=== PATIENT | male | born 1945 | race Caucasian/White ===

== ENCOUNTER 2020-10-11 05:47 | Outpatient (RCR) | payer MEDICARE, OTHER ==
[~2020-10-11] VITALS: Ht 190.5 cm; Wt 86.4 kg
[2020-10-11] MEDS ORDERED: HYDR25TA4 PO (13:07)
[2020-10-11] MEDS ORDERED: PRAV20TA3 PO (13:07)
[2020-10-11] MEDS ORDERED: TMSL.4C PO (13:07)
[2020-10-11] MEDS ORDERED: STL80T PO (13:07)
[2020-10-11] MEDS ORDERED: BETA1TAB15 PO (13:07)
[2020-10-11] MEDS ORDERED: METF-399 PO (13:07)
[2020-10-11] MEDS ORDERED: TIMO5DRO31 OU (13:07)
[2020-10-11] MEDS ORDERED: BENA20TA7 PO (13:07)
[2020-10-11] MEDS ORDERED: SAW450CA7 PO (13:07)
[2020-10-11] MEDS ORDERED: CINN500C2 PO (13:07)
[2020-10-11] MEDS ORDERED: ASPI-999 PO (13:07)
[2020-10-11] MEDS ORDERED: AMLO-250 PO (13:07)
== END 2020-10-11 13:10 | disposition home or self-care (01) ==
LOC: PREOP 05:47 → EDSTATUS 12:30 → PREOP 13:10
PROVIDERS: ATTEND Radiology Radiation Oncology
DX: Z01.818 Encounter for other preprocedural examination (principal)

== ENCOUNTER → 2020-10-16 | Outpatient (CLI) | payer MEDICARE, OTHER ==
[~2020-10-16] MED LIST: AMLO-250 PO; ASPI-999 PO; BENA20TA7 PO; BETA1TAB15 PO; CINN500C2 PO; HYDR25TA4 PO; METF-399 PO; PRAV20TA3 PO; SAW450CA7 PO; STL80T PO; TIMO5DRO31 OU; TMSL.4C PO
== END ==
LOC: LAB FS 10:10
PROVIDERS: ATTEND Radiology Radiation Oncology
DX: Z01.812 Encounter for preprocedural laboratory examination (principal); C61 Malignant neoplasm of prostate; Z20.828 Contact with and (suspected) exposure to other viral communicable diseases
CPT/HCPCS: 87635

== ENCOUNTER 2020-10-18 10:07 | Day surgery (SDC) | payer MEDICARE, OTHER ==
[~2020-10-18] VITALS: Ht 190.5 cm; Wt 86.4 kg
[2020-10-18] VITALS (9 sets, daily range): BP systolic 84–149; BP diastolic 53–88
--- NOTE | 2020-10-18 10:21 | Progress Note-Pre Operative ---
Pre-Operative Progress Note H&P Reviewed The H&P was reviewed, patient examined and no changes noted. Date Seen by Provider: Oct 18, 2020 Time Seen by Provider: 10:20 Date H&P Reviewed: Oct 18, 2020 Time H&P Reviewed: 10:20 Pre-Operative Diagnosis: Prostate cancer cT1c, PSA 5.51, Iva 7 (4+3) MINDI PICHARDO MD Oct 18, 2020 10:21
--- NOTE | 2020-10-18 10:23 | Discharge Inst-Simple/Standard ---
Discharge Inst-Standard Reconcile Patient Problems Problems Reviewed?: Yes Discharge Medications New, Converted or Re-Newed RX: Other (patient already has) Patient Instructions/Follow Up Plan of Care/Instructions/FU: 10/23/20 arrive at 1:00 pm - treatment planning ct scan at [facility] Activity as Tolerated: Yes Discharge Diet: No Restrictions MINDI PICHARDO MD Oct 18, 2020 10:23
[2020-10-18] MEDS ORDERED: LEVOFLOXACIN 500 MG/100 ML IV 100 ML IV ONE (11:00)
[2020-10-18] MEDS ORDERED: LACTATED RINGERS 1,000 ML IV PRN (11:23)
[2020-10-18] MEDS ORDERED: ONDANSETRON 4 MG/2 ML (SDV) Z0FRAN ONE (11:44)
[2020-10-18] MEDS ORDERED: LIDOCAINE PF 2% 5 ML (XYLOCAINE) VIAL ONE (11:44)
[2020-10-18] MEDS ORDERED: proPOfol 200 MG/20 ML (DIPRIVAN) VIAL IV ONE (11:44)
[2020-10-18] MEDS ORDERED: fentaNYL INJECTION 100 MCG/2 ML AMP ONE (11:44)
[2020-10-18] MEDS ORDERED: MIDAZOLAM 2 MG/2 ML (VERSED) VIAL ONE (11:45)
[2020-10-18] MEDS ORDERED: SEVOFLURANE (ULTANE) 15 ML INHAL SOLN ONE (12:08)
--- NOTE | 2020-10-18 12:21 | Progress Note-Post Operative ---
Post-Operative Progess Note Surgeon (s)/Automobile Lights Assembler (s) Surgeon Lily PRINCE MD Automobile Lights Assembler: N/A Pre-Operative Diagnosis Prostate cancer cT1c, PSA 5.51, Iva 7 (4+3) Post-Operative Diagnosis Same as preop Procedure & Operative Findings Date of Procedure 10/18/20 Procedure Performed/Findings (1) Fiducial gold seed marker placement (2) Injection of biodegradable hydrogel prostate-rectal spacer utilizing the SpaceO[employer] system Anesthesia Type General Estimated Blood Loss Estimated blood loss (mL): Minimal Specimens/Packing Specimens Removed N/A Packing: N/A MINDI PICHARDO MD Oct 18, 2020 12:21
--- NOTE | 2020-10-18 13:14 | Anesthesia-General Post-Op ---
General Patient Condition Mental Status/LOC: Same as Preop Cardiovascular: Satisfactory Nausea/Vomiting: Absent Respiratory: Satisfactory Pain: Controlled Complications: Absent Post Op Complications Complications None Follow Up Care/Instructions Patient Instructions None needed. Anesthesia/Patient Condition Patient Condition Patient is doing well, no complaints, stable vital signs, no apparent adverse anesthesia problems. No complications reported per nursing. KULWINDER KNOX CRNA Oct 18, 2020 13:14
== END 2020-10-18 14:10 ==
LOC: SDC 10:07
PROVIDERS: ATTEND Radiology Radiation Oncology
DX: C61 Malignant neoplasm of prostate (principal); I10 Essential (primary) hypertension; E11.9 Type 2 diabetes mellitus without complications; M19.90 Unspecified osteoarthritis, unspecified site; Z79.84 Long term (current) use of oral hypoglycemic drugs; Z79.82 Long term (current) use of aspirin; Z79.899 Other long term (current) drug therapy; Z80.1 Family history of malignant neoplasm of trachea, bronchus and lung; Z80.42 Family history of malignant neoplasm of prostate
CPT/HCPCS: 82962; 87081

== ENCOUNTER 2020-11-16 10:00 | Outpatient (RCR) | payer MEDICARE, OTHER | END 2020-11-20 09:54 | disposition home or self-care (01) | LOC: ONC 10:00 | PROVIDERS: ATTEND Radiology Radiation Oncology | DX: C61 Malignant neoplasm of prostate (principal); E11.9 Type 2 diabetes mellitus without complications; I10 Essential (primary) hypertension; H40.9 Unspecified glaucoma; Z87.442 Personal history of urinary calculi; Z96.652 Presence of left artificial knee joint; Z79.84 Long term (current) use of oral hypoglycemic drugs; Z79.899 Other long term (current) drug therapy | CPT/HCPCS: 76873; G0463; 77300; 77301; 77334; 77338; 77385; 99204 ==

== ENCOUNTER 2021-01-17 13:32 | Outpatient (RCR) | payer MEDICARE, OTHER | END 2021-02-18 | disposition home or self-care (01) | LOC: ONC 13:32 | PROVIDERS: ATTEND Radiology Radiation Oncology | DX: C61 Malignant neoplasm of prostate (principal); E11.9 Type 2 diabetes mellitus without complications; I10 Essential (primary) hypertension; H40.9 Unspecified glaucoma; Z87.442 Personal history of urinary calculi; Z96.652 Presence of left artificial knee joint; Z79.84 Long term (current) use of oral hypoglycemic drugs; Z79.899 Other long term (current) drug therapy | CPT/HCPCS: 77300; 77336; 77338; 77385 ==

== ENCOUNTER 2021-03-08 14:56 | Outpatient (RCR) | payer MEDICARE, OTHER | END 2021-06-06 | disposition home or self-care (01) | LOC: ONC 14:56 | PROVIDERS: ATTEND Radiology Radiation Oncology | DX: C61 Malignant neoplasm of prostate (principal); E11.9 Type 2 diabetes mellitus without complications; I10 Essential (primary) hypertension; Z87.442 Personal history of urinary calculi; Z79.899 Other long term (current) drug therapy; Z80.42 Family history of malignant neoplasm of prostate | CPT/HCPCS: 84153; G0463; 99213 ==

== ENCOUNTER → 2021-08-24 | Outpatient (CLI) | payer MEDICARE, OTHER ==
--- NOTE | 2021-08-24 15:26 | Diagnostic Imaging Report ---
EXAMINATION: Lumbar spine MRI without contrast, 08/24/2021. TECHNIQUE: Multiplanar, multisequence MRI of the lumbar spine was performed without contrast. INDICATION: Left-sided radiculopathy. Back pain with no known injuries. FINDINGS: There is grade 1 anterolisthesis of L4 on L5. Remaining alignment is preserved. Vertebral body heights are maintained. Tip of the conus is unremarkable in appearance and location. L1-L2: There is bilateral facet and ligamentum flavum hypertrophy. Mild broad-based bulging disc material is noted. Findings cause mild central stenosis. There is [id number] bilateral neural foraminal stenosis, left worse than right. L2-L3: There is intervertebral disc space narrowing, disc desiccation, and a broad-based bulging disc with a Schmorl's node along the inferior endplate of the L2 vertebral body. A broad-based bulging disc is noted. There is bilateral facet and ligamentum flavum hypertrophy. There is mild central stenosis. There is moderate neural foraminal narrowing bilaterally. L3-L4: There is intervertebral disc space narrowing, disc desiccation, and a broad-based bulging disc with a more focal left paracentral disc extrusion. Bilateral facet and ligamentum flavum hypertrophy is also present. Findings cause narrowing of the left lateral recess and likely encroaching upon the transiting left nerve root. Eytguvux-wb-xejtef central stenosis is present. There is moderate bilateral neural foraminal stenosis. L4-L5: There is intervertebral disc space narrowing, disc desiccation, and a broad-based bulging disc with bilateral facet and ligamentum flavum hypertrophy. Secondary rzwqsayq-bv-upqcse central stenosis is noted with narrowing of the bilateral lateral recesses. There is moderate bilateral neural foraminal stenosis. L5-S1: There is intervertebral disc space narrowing, disc desiccation, and a right paracentral disc protrusion which cause narrowing of the lateral recesses, right worse than left. There is mild central stenosis. There is bilateral facet and ligamentum flavum hypertrophy with cystic changes posterior to the right facet, likely a synovial cyst. There is moderate left and mild right neural foraminal narrowing. Visualized intra-abdominal structures demonstrate cystic lesions in the kidneys, incompletely imaged, some which may represent parapelvic cysts. IMPRESSION: 1. Multilevel degenerative findings as discussed above. Dictated by: Dictated on workstation # [id number]
== END ==
LOC: RAD 13:10
PROVIDERS: ATTEND Family Medicine
DX: M51.16 Intervertebral disc disorders with radiculopathy, lumbar region (principal); M51.27 Other intervertebral disc displacement, lumbosacral region; M51.37 Other intervertebral disc degeneration, lumbosacral region; M48.061 Spinal stenosis, lumbar region without neurogenic claudication; M48.07 Spinal stenosis, lumbosacral region; M24.28 Disorder of ligament, vertebrae; M89.38 Hypertrophy of bone, other site; M51.46 Schmorl's nodes, lumbar region
CPT/HCPCS: 72148

== ENCOUNTER → 2021-08-24 | Outpatient (CLI) | payer MEDICARE, OTHER | LOC: ONC 14:38 | PROVIDERS: ATTEND Radiology Radiation Oncology ==

== ENCOUNTER → 2022-02-22 | Outpatient (CLI) | payer MEDICARE, OTHER ==
[~2022-02-22] MED LIST changes: +BENA-3 PO; -BENA20TA7 PO
== END ==
LOC: ONC 12:42
PROVIDERS: ATTEND Radiology Radiation Oncology
DX: C61 Malignant neoplasm of prostate (principal)
CPT/HCPCS: 36415; 84153

== ENCOUNTER → 2022-08-15 | Outpatient (CLI) | payer MEDICARE, OTHER ==
--- NOTE | 2022-08-15 10:36 | Diagnostic Imaging Report ---
INDICATION: Right knee pain with osteoarthritis. FINDINGS: 3 views. There is rather severe osteoarthritic change noted throughout all compartments. There is loss of joint space. There is considerable hypertrophic change both medial and lateral femoral condyle as well as the patellofemoral joint. No cortical fractures are seen. Could not exclude a small ossified loose body within the joint space. IMPRESSION: Xnndfosq-bx-nkbpja multi-compartmental osteoarthritic disease with considerable hypertrophic change. Dictated by: Dictated on workstation # [id number]
== END ==
LOC: RAD FS 09:11
PROVIDERS: ATTEND Family Medicine
DX: M17.11 Unilateral primary osteoarthritis, right knee (principal)
CPT/HCPCS: 73562

== ENCOUNTER 2022-08-28 09:50 | Outpatient (RCR) | payer MEDICARE, OTHER | END 2022-09-16 | disposition home or self-care (01) | LOC: ONC 09:50 | PROVIDERS: ATTEND Radiology Radiation Oncology | DX: Z12.5 Encounter for screening for malignant neoplasm of prostate (principal) | CPT/HCPCS: 36415; 84153 ==

== ENCOUNTER 2023-02-27 12:58 | Outpatient (RCR) | payer MEDICARE, OTHER | END 2023-03-16 | disposition home or self-care (01) | LOC: ONC 12:58 | PROVIDERS: ATTEND Radiology Radiation Oncology | DX: C61 Malignant neoplasm of prostate (principal) | CPT/HCPCS: 36415; 84153 ==

== ENCOUNTER 2023-09-02 10:50 | Outpatient (RCR) | payer MEDICARE, OTHER | END 2023-09-16 | disposition home or self-care (01) | LOC: ONC 10:50 | PROVIDERS: ATTEND Radiology Radiation Oncology | DX: C61 Malignant neoplasm of prostate (principal) | CPT/HCPCS: 36415; 84153 ==